=== PATIENT | female | born 1950 | race Caucasian/White ===

== ENCOUNTER 2016-07-02 17:46 | Emergency (ER) | payer BC | END 2016-07-02 18:00 | disposition home or self-care (01) | LOC: ER 17:46 | DX: S01.112A Laceration without foreign body of left eyelid and periocular area, initial encounter (principal); I10 Essential (primary) hypertension; Z88.0 Allergy status to penicillin; Z88.1 Allergy status to other antibiotic agents; W01.10XA Fall on same level from slipping, tripping and stumbling with subsequent striking against unspecified object, initial encounter; Y93.73 Activity, racquet and hand sports | CPT/HCPCS: 90471; 90714; 99283 ==